=== PATIENT | female | born 1980 | race African-American/Black ===

== ENCOUNTER 2024-09-18 08:03 | Outpatient (CLI) | payer OTHER, SELFPAY ==
--- NOTE | ~2024-09-18 | CT_ITS ---
CT of the Abdomen and Pelvis: Indication: Abdominal swelling Technique: 2.5 mm axial scans were obtained through the abdomen and pelvis following intravenous adm inistration of 100 cc of Omnipaque 350. Dose reduction technique was used on this scan by utilizing a utomated exposure control and iterative reconstruction technique. The dose-length product (DLP) was 1 314.01 mGy-cm. Findings: Scans through the lung bases are unremarkable. The liver, spleen, pancreas, gallbladder, adrenals and kidneys are within normal limits. No evidence of aortic aneurysm. No lymphadenopathy. No bowel obstruction or bowel wall thickening. There is no evidence to suggest acute appendicitis. Images through the pelvis were performed. Urinary bladder unremarkable. There is a dominant uterine f ibroid measuring approximately 14.0 x 10.9 x 13.9 cm. No ascites. Impression: Large uterine fibroid, as above. Reviewed, dictated and finalized at [facility]. Impression: Large uterine fibroid, as above.
[2024-09-18 08:50] LABS: Estimated Glomerular Filt Rate > 60
== END 2024-09-18 08:04 | disposition home or self-care (01) ==
PROVIDERS: PCP Internal Medicine Infectious Disease
DX: D25.9 Leiomyoma of uterus, unspecified (principal); R19.8 Other specified symptoms and signs involving the digestive system and abdomen; R19.00 Intra-abdominal and pelvic swelling, mass and lump, unspecified site
CPT/HCPCS: 74177; Q9967